=== PATIENT | female | born 1955 | race Caucasian/White ===

== ENCOUNTER → 2016-09-25 | Outpatient (CLI) | payer BC | END | disposition home or self-care (01) | LOC: LABWHC1 14:26 | PROVIDERS: ATTEND Obstetrics & Gynecology | DX: N83.9 Noninflammatory disorder of ovary, fallopian tube and broad ligament, unspecified (principal) | CPT/HCPCS: 36415; 86304 ==

== ENCOUNTER → 2016-11-27 | Outpatient (CLI) | payer BC ==
--- NOTE | 2016-11-27 09:39 | US ---
EXAMINATION TYPE: US pelvis complete transvag DATE OF EXAM: 11/27/2016 COMPARISON: NONE CLINICAL HISTORY: Prev Ovarian Cyst N83.20. dr polly showed rt ov cyst TECHNIQUE: Transvaginal (TV) and Transabdominal (TA) Date of LMP: 7 years ago EXAM MEASUREMENTS: Uterus: 9.1 x 2.1 x 3.4 cm Endometrial Stripe: 0.4 cm Right Ovary: 2.2 x 1.0 x 2.1 cm Left Ovary: 2.6 x 1.3 x 1.6 cm 1. Uterus: Anteverted heterogenous, small echogenic foci upper cervix 0.3 x 0.3 x 0.3 cm. This cou ld represent a small polyp although no feeding vessel is appreciated. 2. Endometrium: not clearly defined 3. Right Ovary: possible small follicle 0.3 cm 4. Left Ovary: not seen well portions seen wnl 5. Bilateral Adnexa: Obscured by overlying bowel gas 6. Posterior cul-de-sac: wnl IMPRESSION: 1. No evidence of ovarian cysts. 2. Small 3 mm echogenic focus near the junction of the lower uterine segment and superior cervix. Thi s could represent a small polyp and direct visualization is recommended as this may not be well delin eated on hysterosonography.
== END | disposition home or self-care (01) ==
LOC: RADUSWWP 08:24
PROVIDERS: ATTEND Obstetrics & Gynecology
DX: R93.8 Abnormal findings on diagnostic imaging of other specified body structures (principal)
CPT/HCPCS: 76830; 76856

== ENCOUNTER → 2018-01-05 | Outpatient (CLI) | payer BC ==
--- NOTE | 2018-01-05 09:12 | US ---
EXAMINATION TYPE: US pelvis complete transvag DATE OF EXAM: 01/05/2018 COMPARISON: 11/27/2016 CLINICAL HISTORY: N83.0 OVARIAN CYST,N84.0 ENDOMETRIAL POLYP. TECHNIQUE: Transvaginal (TV) and Transabdominal (TA) . Transabdominal sonographic images of the pel vis were acquired. Transvaginal sonographic images were medically necessary to better assess the fol lowing anatomy: endometrium and ovaries Date of LMP: post menopausal, no HRT EXAM MEASUREMENTS: Uterus: 7.8 x 3.6 x 3.7 cm Endometrial Stripe: 0.4 cm Right Ovary: not identified Left Ovary: not identified 1. Uterus: Anteverted heterogeneous echotexture 2. Endometrium: wnl 3. Right Ovary: not identified 4. Left Ovary: not identified 5. Bilateral Adnexa: wnl 6. Posterior cul-de-sac: no free fluid IMPRESSION: 1. Uterine myometrium is heterogeneous but stable in appearance which is a nonspecific finding. Previ ous seen noted small echogenic focus in the upper cervix is not seen on today's exam.
== END | disposition home or self-care (01) ==
LOC: RADUSWWP 08:20
PROVIDERS: ATTEND Obstetrics & Gynecology
DX: N83.01 Follicular cyst of right ovary (principal); N81.0 Urethrocele
CPT/HCPCS: 76830; 76856

== ENCOUNTER → 2019-01-31 | Outpatient (CLI) | payer OTHER ==
--- NOTE | 2019-02-02 11:15 | MM ---
Reason for exam: screening (asymptomatic). Last mammogram was performed 7 years and 9 months ago. History: Patient is postmenopausal. Physical Findings: A clinical breast exam by your physician is recommended on an annual basis and results should be correlated with mammographic findings. MG 3D Screening Mammo W/Cad Bilateral CC and MLO view(s) were taken. Prior study comparison: January 05, 2018, mammogram, performed at [facility]. May 15, 2016, mammogram, performed at [facility]. May 12, 2011, bilateral digital screening mammo w/CAD. May 10, 2010, bilateral digital screening mammogram. There are scattered fibroglandular densities. There is chronic nodularity in the left lower inner quadrant. ASSESSMENT: Benign, BI-RAD 2 RECOMMENDATION: Routine screening mammogram of both breasts in 1 year.
== END ==
LOC: RADMAMWWP 07:57
PROVIDERS: ATTEND Obstetrics & Gynecology
DX: Z12.31 Encounter for screening mammogram for malignant neoplasm of breast (principal)
CPT/HCPCS: 77063; 77067

== ENCOUNTER 2019-05-16 07:37 | Observation (INO) | payer OTHER ==
[2019-05-16] MEDS ORDERED: ASPIRIN 81 MG PO STA (07:57)
--- NOTE | 2019-05-16 07:58 | ED ---
Chest Pain HPI - General Chief Complaint: Chest Pain Stated Complaint: Nausea/Dizziness/ETHAN Time Seen by Provider: 05/16/19 07:42 Source: patient Mode of arrival: ambulatory Limitations: no limitations - History of Present Illness Initial Comments: Patient is 63-year-old female presenting to the emergency department with chief complaint of chest pain. Patient reports she is drinking coffee and developed the sudden onset of dizziness where the room was spinning around her. She also developed a sudden episode of sweating, nausea but no vomiting. She also reports some upper chest tightness without any radiation. Denies shortness of breath. Patient states yesterday she had some left shoulder discomfort that is gradually resolved. Patient denies a history of hypertension but suspected to have hyperlipidemia but has not been evaluated for quite some time. Patient is not a smoker. Denies family history of early cardiac . Patient denies back pain abdominal pain. - Related Data Home Medications Medication Instructions Recorded Confirmed No Known Home Medications 05/11/15 05/16/19 Allergies Allergy/AdvReac Type Severity Reaction Status Date / Time No Known Allergies Allergy Verified 05/16/19 09:42 Review of Systems ROS Statement: Those systems with pertinent positive or pertinent negative responses have been documented in the HPI. ROS Other: All systems not noted in ROS Statement are negative. EKG Findings - EKG Comments: EKG Findings:: Normal sinus rhythm, no ST changes, ventricular rate 73, ID interval 160, QRS advent 76, QTC 429. Past Medical History Past Medical History: Asthma, GERD/Reflux, Sleep Apnea/CPAP/BIPAP Additional Past Medical History / Comment(s): C-PAP MACHINE, STATES ABNORMAL PAP SMEAR. History of Any Multi-Drug Resistant Organisms: None Reported Additional Past Surgical History / Comment(s): D & C Past Anesthesia/Blood Transfusion Reactions: Motion Sickness, Postoperative Nausea & Vomiting (PONV) Additional Past Anesthesia/Blood Transfusion Reaction / Comment(s): STATES THROAT HURT POST-OP Past Psychological History: No Psychological Hx Reported Smoking Status: Former smoker Past Alcohol Use History: Occasional Past Drug Use History: None Reported - Past Family History Mother Family Medical History: Cancer Additional Family Medical History / Comment(s): MELANOMA Sister(s) Family Medical History: Cancer Additional Family Medical History / Comment(s): CERVICAL CANCER General Exam Limitations: no limitations General appearance: alert, in no apparent distress, obese Head exam: Present: atraumatic, normocephalic, normal inspection Eye exam: Present: normal appearance, PERRL, EOMI Pupils: Present: normal accommodation ENT exam: Present: normal exam Neck exam: Present: normal inspection, full ROM Respiratory exam: Present: normal lung sounds bilaterally Cardiovascular Exam: Present: regular rate, normal rhythm, normal heart sounds GI/Abdominal exam: Present: soft. Absent: distended, tenderness, guarding Extremities exam: Present: normal inspection, full ROM, normal capillary refill, other (+2 ulnar and radial pulses bilaterally.) Back exam: Present: normal inspection, full ROM Neurological exam: Present: alert, oriented X3 Psychiatric exam: Present: normal affect, normal mood Skin exam: Present: warm, dry, intact, normal color Course Vital Signs 05/16/19 05/16/19 07:39 08:57 Temperature 98.1 F Pulse Rate 73 66 Respiratory 18 Rate Blood Pressure 153/90 139/87 O2 Sat by Pulse 99 Oximetry Chest Pain MDM - Differential Diagnosis ACS, Pleurisy-Other - MDM Patient is 63-year-old male presenting to the emergency department with a chief complaint of chest pain. Patient has atypical chest pain with typical features. Patient has low risk factors but has not seen a primary care physician a few years. Patient has recently established care with a primary physician but no lab work was obtained there. Patient was given 325 mg of aspirin in the ED. EKG shows normal sinus rhythm with no ST changes and the EKG is similar to 05/11/15. Initial troponin is negative. Patient has no shortness of breath. Chest x-ray shows chronic pulmonary changes, cardiomegaly without pulmonary edema. Patient has no significant past medical history aside from sleep apnea. Patient will be admitted for serial troponins. Case discussed with Dr. Peña. Admitting physician is Cardiology consult. Disposition Clinical Impression: Chest discomfort, Chest pain at rest Disposition: ADMITTED IP TO THIS HOSP Condition: Stable Instructions (If sedation given, give patient instructions): Chest Pain (ED) Additional Instructions: Patient will be admitted Is patient prescribed a controlled substance at d/c from ED?: No Referrals: Tray Drake MD [Primary Care Provider] - 1-2 days Time of Disposition: 09:51
--- NOTE | 2019-05-16 08:37 | XR ---
EXAMINATION TYPE: XR chest 2V DATE OF EXAM: 05/16/2019 COMPARISON: Chest x-ray and CTA chest May 11, 2015 HISTORY: Chest pain. TECHNIQUE: Frontal and lateral views of the chest are obtained. FINDINGS: Overlying EKG leads. There is chronic parenchymal change without new suspicious focal air s pace opacity, pleural effusion, or pneumothorax seen. Lateral view shows fullness posterior costophre nancy angle corresponding to right basilar diaphragmatic hernia. The cardiac silhouette size is stable and enlarged. The osseous structures are intact. IMPRESSION: Chronic changes and cardiomegaly without acute pulmonary process.
[2019-05-16 08:52] LABS: Basophils # (A) 0.1 k/uL (0-0.2); Basophils % (A) 1 %; Eosinophils # (A) 0.2 k/uL (0-0.7); Eosinophils % (A) 3 %; HCT 45.1 % (34.0-46.0); HGB 14.6 gm/dL (11.4-16.0); Lymphocytes # (A) 1.9 k/uL (1.0-4.8); Lymphocytes % (A) 28 %; MCH 29.6 pg (25.0-35.0); MCHC 32.5 g/dL (31.0-37.0); MCV 91.2 fL (80.0-100.0); Mean Platelet Volume 8.2; Monocytes # (A) 0.3 k/uL (0-1.0); Monocytes % (A) 4 %; Neutrophils # (A) 4.1 k/uL (1.3-7.7); Neutrophils % (A) 60 %; Platelet Count 249 k/uL (150-450); RBC 4.95 m/uL (3.80-5.40); RDW 12.9 % (11.5-15.5); WBC 6.8 k/uL (3.8-10.6)
[2019-05-16 08:58] LABS: ALT 24 U/L (4-34); AST 24 U/L (14-36); African American GFR (CKD) >90 (>60 ml/min/1.73 sqM); Albumin 4.1 g/dL (3.5-5.0); Alkaline Phosphatase 101 U/L (38-126); Anion Gap 10 mmol/L; Blood Urea Nitrogen 25 mg/dL (7-17); Calcium 9.3 mg/dL (8.4-10.2); Carbon Dioxide 24 mmol/L (22-30); Chloride 106 mmol/L (98-107); Glucose 101 mg/dL (74-99); Non-African American GFR(CKD) 80 (>60 ml/min/1.73 sqM); Partial Thromboplastin Time 23.8 sec (22.0-30.0); Potassium 4.3 mmol/L (3.5-5.1); Prothrombin Time 10.1 sec (9.0-12.0); Sodium 140 mmol/L (137-145); Total Bilirubin 0.6 mg/dL (0.2-1.3); Total Protein 7.5 g/dL (6.3-8.2)
[2019-05-16] MEDS ORDERED: NITROGLYCERIN SL TABS 0.4 MG TAB SUBLINGUAL PRN (09:52)
[2019-05-16] MEDS ORDERED: SODIUM CHLORIDE 0.9% 500 ML 500 ML IV ONE (14:25)
--- NOTE | 2019-05-16 16:44 | P.CRDCN ---
History of Present Illness History of present illness: This is Priscila Morocho PA-C dictating a consult on this patient The patient was interviewed and examined by me as well as by Dr. Carmona Case discussed with Dr. Carmona and he agrees with the plan of care IMPRESSION / ASSESSMENT: Symptoms of dizziness likely secondary to combination of vertigo related to her recent cold and vasovagal presyncope Atypical chest discomfort, cardiac enzymes negative 1, EKG x [address] or T-wave abnormalities History of WILBERTO, on CPAP LDL 118, ten-year ASCVD risk score 3.9% PLAN: Check D-dimer, A1c, Follow-up on repeat cardiac enzymes Schedule for tilt table test Monitor telemetry for arrhythmias HPI Patient is a 63-year-old female with a past medical history significant for obstructive sleep apnea who presented with complaints of dizziness and chest discomfort. Patient states she was at home drinking her coffee, sitting down wh en she experienced a sudden onset of dizziness which she describes as "the room is spinning". It lasted for about 2 minutes and was relieved by closing her eyes. She also experienced some tightness across her chest briefly. Denies any associated palpitations. She then got up and started to get ready and felt lightheaded, nauseous, hot, and diaphoretic. No vomiting. No syncope. She had never had an experienced symptoms like this before. She does report that yesterday she had some left shoulder discomfort. She decided to come in for evaluation.Upon presentation her blood pressure was 153/90 and pulse was 70. EKG showed sinus mechanism with no acute ST or T-wave abnormalities. Chest x- ray showed no acute cardiopulmonary process. Cardiac enzymes negative 1.Patient seen and examined resting in bed. Her symptoms have resolved. Denies any chest pain or shortness of breath. No dizziness. Repeat EKG again demonstrates no acute ST or T-wave abnormalities. Denies history of hypertension, diabetes, dyslipidemia Admits to drinking one glass of wine a day She is a former smoker but quit several years back ROS: No fevers, chills or rigors, no cough, phlegm or expectoration, he did have a recent cold about 2 weeks ago that she is recovering from Positive for nausea, no vomiting or diarrhea, no hematuria, dysuria, no musculoskeletal complaints, no strokes or seizures, no skin lesions. EXAMINATION: Patient is afebrile, pulse 70, respirations 16, blood pressure 136/77, oxygen saturation 97% on room air Patient seen and examined resting comfortably in bed, in no acute distress Lungs clear to auscultation bilaterally, no wheezing rhonchi or crackles Heart is regular, normal S1-S2, no audible murmurs No elevated JVD No lower extremity edema Abdomen soft and nontender to palpation REVIEW OF LABS, ECG & MEDICAL DATA CBC 6.8, hemoglobin 14.6, platelets 249, potassium 4.3, BUN 25, creatinine 0.8 TSH within normal limits LDL 118 Past Medical History Past Medical History: Asthma, GERD/Reflux, Sleep Apnea/CPAP/BIPAP Additional Past Medical History / Comment(s): WILBERTO with Cpap use, bronchitis. History of Any Multi-Drug Resistant Organisms: None Reported Additional Past Surgical History / Comment(s): D & C, colonoscopy with benign polypectomy Past Anesthesia/Blood Transfusion Reactions: Motion Sickness Additional Past Anesthesia/Blood Transfusion Reaction / Comment(s): STATES THROAT HURT POST-OP Past Psychological History: Anxiety Additional Psychological History / Comment(s): Pt resides with her spouse. She is self employed. Smoking Status: Former smoker Past Alcohol Use History: Occasional Additional Past Alcohol Use History / Comment(s): Pt started smoking in 1973 and quit in 1985. She drinks 1/4 cup of wine nightly. Past Drug Use History: None Reported - Past Family History Mother Family Medical History: Cancer Additional Family Medical History / Comment(s): Melanoma. Mother is . Sister(s) Family Medical History: Cancer Additional Family Medical History / Comment(s): CERVICAL CANCER Father Additional Family Medical History / Comment(s): Father is 95 yrs old with a pacemaker. Medications and Allergies Home Medications Medication Instructions Recorded Confirmed Type No Known Home Medications 05/11/15 05/16/19 History Allergies Allergy/AdvReac Type Severity Reaction Status Date / Time shellfish derived [Shellfish] Allergy Unknown Verified 05/16/19 11:20 Physical Exam Vitals: Vital Signs Temp Pulse Pulse Pulse Resp BP BP 05/16/19 15:28 98 F 70 16 136/77 05/16/19 11:00 97.9 F 65 18 125/70 05/16/19 10:00 66 18 136/83 05/16/19 08:57 66 139/87 05/16/19 07:39 98.1 F 73 18 153/90 Pulse Ox 05/16/19 15:28 97 05/16/19 11:00 97 05/16/19 10:00 97 05/16/19 08:57 05/16/19 07:39 99 Intake and Output 05/16/19 05/16/19 05/16/19 06:59 14:59 22:59 Intake Total 290 Balance 290 Intake: IV 50 Oral 240 Other: Weight 122.47 kg Results 05/16/19 08:00 05/16/19 08:00 Cardiac Enzymes 05/16/19 05/16/19 05/16/19 Range/Units 08:00 08:00 12:48 AST 24 (14-36) U/L Troponin I <0.012 <0.012 (0.000-0.034) ng/mL Coagulation 05/16/19 Range/Units 08:00 PT 10.1 (9.0-12.0) sec APTT 23.8 (22.0-30.0) sec Lipids 05/16/19 Range/Units 08:00 Triglycerides 85 (<150) mg/dL Cholesterol 192 (<200) mg/dL HDL Cholesterol 57 (40-60) mg/dL CBC 05/16/19 Range/Units 08:00 WBC 6.8 (3.8-10.6) k/uL RBC 4.95 (3.80-5.40) m/uL Hgb 14.6 (11.4-16.0) gm/dL Hct 45.1 (34.0-46.0) % Plt Count 249 (150-450) k/uL Comprehensive Metabolic Panel 05/16/19 Range/Units 08:00 Sodium 140 (137-145) mmol/L Potassium 4.3 (3.5-5.1) mmol/L Chloride 106 (98-107) mmol/L Carbon Dioxide 24 (22-30) mmol/L BUN 25 H (7-17) mg/dL Creatinine 0.80 (0.52-1.04) mg/dL Glucose 101 H (74-99) mg/dL Calcium 9.3 (8.4-10.2) mg/dL AST 24 (14-36) U/L ALT 24 (4-34) U/L Alkaline Phosphatase 101 (38-126) U/L Total Protein 7.5 (6.3-8.2) g/dL Albumin 4.1 (3.5-5.0) g/dL Current Medications Generic Name Dose Route Start Last Admin Trade Name Freq PRN Reason Stop Dose Admin Aspirin 81 mg 05/17/19 09:00 Aspirin PO DAILY GERARDO Nitroglycerin 0.4 mg 05/16/19 09:52 Nitrostat SUBLINGUAL Q5M PRN Chest Pain Intake and Output 05/16/19 05/16/19 05/16/19 06:59 14:59 22:59 Intake Total 290 Balance 290 Intake: IV 50 Oral 240 Other: Weight 122.47 kg Patient Weight 05/17/19 06:59 Weight 122.47 kg 05/16/19 08:00 05/16/19 08:00
[2019-05-16] MEDS ORDERED: MECLIZINE 12.5 MG TAB PO PRN (17:11)
--- NOTE | 2019-05-16 18:38 | HP ---
HISTORY AND PHYSICAL This patient is a 63-year-old white female who came into the hospital with some dizziness while sitting down and drinking coffee. The room was spinning. Her dizziness is most likely related to some vertigo. She had a recent possibly vasovagal presyncope. She really had no chest pain. She has a history of sleep apnea, on CPAP. LDL is 118. She has never had feelings like this before where she got dizzy, although she has been on a recent fast where she had not eaten since 5 p.m. the prior night. She had some left shoulder discomfort. EKG shows no ST-T changes. Chest x-ray is negative. Cardiac enzymes are negative so far. We are going to give her a trial of Antivert if it happens again. No dizziness currently. PAST MEDICAL HISTORY: 1. Obstructive sleep apnea. 2. Obesity. 3. Former smoker. 4. Drinks one glass of wine a day. REVIEW OF SYSTEMS: Fourteen-point review of systems negative except for mentioned in HPI. PHYSICAL EXAMINATION: Blood pressure 130s over 70s, oxygen 97, respiratory rate 12-14. LUNGS: Clear. HEART: S1, S2. ABDOMEN: Soft. LABS: BUN 25, creatinine 0.8. CBC shows hemoglobin 14.6, white count 6.8. TSH is normal. ASSESSMENT: 1. Atypical dizziness. Suspect vertigo. 2. Atypical left shoulder pain. 3. History of sleep apnea. 4. Gastroesophageal reflux disease. 5. Asthma. 6. Recent bronchitis. 7. Anxiety. 8. Ex-smoker. Rule out myocardial infarction. Antivert p.r.n. for dizziness. Check her for risk factors for heart disease. Please see further orders. MMODL / IJN: [id number] /
--- NOTE | 2019-05-16 19:17 | P.PCN ---
Preoperative Diagnosis: Diagnosis: Presyncope Twelve-lead EKG shows sinus mechanism, normal AK, narrow QRS, normal ST segments, normal QT interval, no delta Waves, No Epsilon Waves Baseline heart rate was 75 bpm, Baseline blood pressure was 149/67 Patient was tilted upright at a 70 angle as per protocol. There were no significant changes in her heart rate or blood pressure throughout the procedure. Heart rate remained in the 80s, blood pressure remained in the 130s to 150s systolic over 60s to 70s diastolic. The patient was asymptomatic throughout the procedure. At the end of the procedure she was laid supine. Impression Normal twelve-lead EKG Normal heart rate and blood pressure response to upright tilting. No evidence for neurocardiogenic syncope or dysautonomia
[2019-05-16 23:25] LABS: Hemoglobin A1C 5.3 % (4.0-6.0)
[2019-05-17] MEDS ORDERED: ASPIRIN 325 MG TAB PO SCH (09:00)
[2019-05-17] MEDS ORDERED: ASPIRIN 81 MG PO SCH (09:00)
[2019-05-17 11:42] VITALS: BP 122/73; PULSE 68; RESP 20; TEMP 98.3
--- NOTE | 2019-05-17 13:11 | P.PN ---
Subjective This is Priscila Morocho PA-C dictating a progress note on this patient The patient was interviewed and examined by me as well as by Dr. Carmona Case discussed with Dr. Carmona and he agrees with the plan of care IMPRESSION / ASSESSMENT: Symptoms of dizziness likely secondary to combination of vertigo and vasovagal presyncope, tilt table test was negative, no arrhythmias on telemetry Atypical chest discomfort, normal EKG, cardiac enzymes negative 2 History of WILBERTO on CPAP She has had some elevated blood pressure readings on admission but overall trend is within normal limits Dyslipidemia, LDL 118, ASCVD risk score 3.9% PLAN: From a cardiology standpoint, she is clear for discharge with outpatient follow- up Follow-up in the office this Thursday, will obtain echocardiogram and stress echocardiogram outpatient Continue to monitor blood pressure Encouraged patient to continue exercising and heart healthy diet, gradual weight reduction HPI/interval history Patient is a 63-year-old female with history of WILBERTO who presented with compl aints of dizziness and chest discomfort. EKG did not show any acute changes. Troponins were negative. TSH within normal limits. She underwent table test which did not show any evidence for neurocardiogenic syncope. She has had no arrhythmias on telemetry. Patient seen and examined resting comfortably in bed. No further episodes of dizziness. No chest discomfort. She does get short of breath with exertion which she attributes to her lack of regular physical activity denies any acute shortness of breath. EXAMINATION Patient is afebrile, pulse in the 60s, respirations 20, blood pressure 122/73, oxygen saturation 96% on room air Patient seen and examined resting comfortably in bed, in no acute distress Heart is regular, normal S1-S2, no murmurs Lungs clear to auscultation bilaterally Extremities warm, no edema REVIEW OF LABS, ECG Hemoglobin A1c 5.3 D-dimer 0.33 BUN 25, creatinine 0.8, potassium 4.3 Objective - Vital Signs Vital signs: Vital Signs Temp 98.3 F 05/17/19 11:42 Pulse 68 05/17/19 11:42 Resp 20 05/17/19 11:42 BP 122/73 05/17/19 11:42 Pulse Ox 96 05/17/19 11:42 Intake & Output 05/16/19 05/17/19 05/17/19 18:59 06:59 18:59 Intake Total 530 180 Output Total 200 Balance 530 -200 180 Weight 122.47 kg 124.3 kg Intake: IV 50 Oral 480 180 Output: Urine 200 Other: Voiding Method Toilet # Voids 4 1 1 - Labs CBC & Chem 7: 05/16/19 08:00 05/16/19 08:00
--- NOTE | 2019-05-29 10:44 | DS ---
DISCHARGE SUMMARY ADMIT DATE: 05/16/2019. DISCHARGE DATE: 05/17/2019. MEDICATIONS: Antivert 12.5 q.8h p.r.n. CONDITION: Stable. PROGNOSIS: Guarded. Ambulate as tolerated. HISTORY: White female was admitted with dizziness, atypical chest pain. Cardiology saw her and cleared her for surgery. She had negative tilt table test in the hospital. Cleared by Cardiology. Treated with Antivert for vertigo, which improved her. She will follow up as an outpatient. CONDITION: Stable. PROGNOSIS: Guarded. MMODL / IJN: [id number] /
== END 2019-05-17 14:13 | disposition home or self-care (01) ==
LOC: EC 07:37 → 3SCARD 09:52
PROVIDERS: ADMIT Family Medicine; ATTEND Family Medicine
DX: R07.89 Other chest pain (principal); R55 Syncope and collapse; R42 Dizziness and giddiness; M25.512 Pain in left shoulder; E78.5 Hyperlipidemia, unspecified; J45.909 Unspecified asthma, uncomplicated; K21.9 Gastro-esophageal reflux disease without esophagitis; F41.9 Anxiety disorder, unspecified; G47.33 Obstructive sleep apnea (adult) (pediatric); I51.7 Cardiomegaly; Z87.891 Personal history of nicotine dependence; Z99.89 Dependence on other enabling machines and devices; Z82.49 Family history of ischemic heart disease and other diseases of the circulatory system; Z80.8 Family history of malignant neoplasm of other organs or systems; Z80.49 Family history of malignant neoplasm of other genital organs
CPT/HCPCS: 93005 ×3; 99285; 36415; 93660; 85379; 80061; 80053; 84443; 83735; 84436; 84484; 85025; 85610; 85730; 83036; 71046; G0378 ×2

== ENCOUNTER 2019-10-23 07:05 | Emergency (ER) | payer OTHER ==
[2019-10-23 07:17] VITALS: TEMP 98
[2019-10-23] MEDS ORDERED: SODIUM CHLORIDE 0.9% 1,000 ML IV STA (07:28)
[2019-10-23] MEDS ORDERED: ONDANSETRON 4 MG/2 ML VIAL IVP STA (07:28)
--- NOTE | 2019-10-23 07:31 | ED ---
General Adult HPI - General Chief complaint: Abdominal Pain Stated complaint: vomiting Time Seen by Provider: 10/23/19 07:17 Source: patient Mode of arrival: ambulatory Limitations: no limitations - History of Present Illness Initial comments: Dictation was produced using Rundown dictation software. please excuse any grammatical, word or spelling errors. This patient was cared for during a federal and state declared state of emergency secondary to Covid 19 Chief Complaint: 64-year-old female past medical history of asthma and sleep apnea presents with epigastric abdominal pain. History of Present Illness: 64-year-old female since 11 PM last night patient has been having epigastric abdominal pain, nausea and vomiting. Patient reports that her emesis is nonbilious nonbloody patient states that her emesis resembles food. She's concerned she is food poisoning. She had a salad for dinner last night. Shortly after she began experiencing abdominal burning, nausea and vomiting. Patient describes the pain as burning sensation to the mid epigastric area. Does not radiate. She states that it's a burning sensation. She denies the pain being sharp or dull. She states that the pain is not very severe. Since the onset of her symptoms she did attempt to drink fluids. She was able to tolerate that. She denies any worsening symptoms with oral intake. She denies any diarrhea. No constitutional symptoms. The ROS documented in this emergency department record has been reviewed and confirmed by me. Those systems with pertinent positive or negative responses have been documented in the HPI. All other systems are other negative and/or noncontributory. PHYSICAL EXAM: General Impression: Alert and oriented x3, not in acute distress HEENT: Normocephalic atraumatic, extra-ocular movements intact, pupils equal and reactive to light bilaterally, mucous membranes moist. Cardiovascular: Heart regular rate and rhythm Chest: Able to complete full sentences, no retractions, no tachypnea Abdomen: abdomen soft, slight tenderness to palpation of the epigastric area, non-distended, no organomegaly, negative Kelly sign, no pain in McBurney's point, negative left lower quadrant tenderness to palpation, no pulsatile ab dominal mass Musculoskeletal: Pulses present and equal in all extremities, no peripheral edema Motor: no focal deficits noted Neurological: CN II-XII grossly intact, no focal motor or sensory deficits noted Skin: Intact with no visualized rashes Psych: Normal affect and mood ED course: 64-year-old female presents with nausea vomiting abdominal pain. Vital signs upon arrival are within acceptable limits. Physical examination appears benign. Her abdominal exam is benign. She does not have any physical exam findings to suggest surgical abdomen. Laboratory evaluation obtained. Patient has mild leukocytosis of 11.7 likely secondary to stress. Metabolic panel is unremarkable. Abdominal x-ray shows no acute processes. Patient history with intravenous fluids, Zofran and Bentyl and GI cocktail. Patient states that her symptoms are slightly improved however not entirely gone. Results were discussed with patient. It was offered to her to have a CT to rule out any sort of surgical abdomen. Patient decided that she doesn't want to get a CT performed today. Patient requested to be discharged. She is told to follow-up with her primary care physician. Temporarily discussed. Patient was offered antiemetics however she refused. While in the emergency department her called and told her that he was having similar symptoms after being at the same picnic. There is concern of food poisoning. Patient told to monitor her symptoms closely at home and to return to the emerg ency department if they do not get better. Patient agreeable with plan. Patient will be discharged. EKG interpretation: Ventricular rate 64, normal sinus rhythm, NY interval 164, QRS 76, QTC 427. No NY prolongation, T-wave inversion seen in lead 3 and aVF that appear to be present on EKG from 2019. Overall, this EKG is unremarkable - Related Data Previous Rx's Medication Instructions Recorded Meclizine [Antivert] 12.5 mg PO TID PRN #30 tablet 05/17/19 Allergies Allergy/AdvReac Type Severity Reaction Status Date / Time shellfish derived [Shellfish] Allergy Unknown Verified 10/23/19 07:16 Review of Systems ROS Statement: Those systems with pertinent positive or pertinent negative responses have been documented in the HPI. ROS Other: All systems not noted in ROS Statement are negative. Past Medical History Past Medical History: Asthma, GERD/Reflux, Sleep Apnea/CPAP/BIPAP Additional Past Medical History / Comment(s): WILBERTO with Cpap use, bronchitis. History of Any Multi-Drug Resistant Organisms: None Reported Additional Past Surgical History / Comment(s): D & C, colonoscopy with benign polypectomy Past Anesthesia/Blood Transfusion Reactions: Motion Sickness Additional Past Anesthesia/Blood Transfusion Reaction / Comment(s): STATES THROAT HURT POST-OP Past Psychological History: Anxiety Smoking Status: Former smoker Past Alcohol Use History: Occasional Past Drug Use History: None Reported - Past Family History Mother Family Medical History: Cancer Additional Family Medical History / Comment(s): Melanoma. Mother is . Sister(s) Family Medical History: Cancer Additional Family Medical History / Comment(s): CERVICAL CANCER Father Additional Family Medical History / Comment(s): Father is 95 yrs old with a pacemaker. General Exam Limitations: no limitations Course Vital Signs 10/23/19 10/23/19 10/23/19 07:12 08:21 08:22 Temperature 98.0 F Pulse Rate 77 67 72 Respiratory 16 18 16 Rate Blood Pressure 166/95 147/74 O2 Sat by Pulse 97 98 97 Oximetry 10/23/19 08:30 Temperature Pulse Rate 70 Respiratory 16 Rate Blood Pressure 147/74 O2 Sat by Pulse 98 Oximetry Medical Decision Making - Lab Data Result diagrams: 10/23/19 07:32 10/23/19 07:52 Lab Results 10/23/19 10/23/19 10/23/19 Range/Units 07:32 07:52 07:52 WBC 11.7 H (3.8-10.6) k/uL RBC 4.59 (3.80-5.40) m/uL Hgb 14.0 (11.4-16.0) gm/dL Hct 42.2 (34.0-46.0) % MCV 92.0 (80.0-100.0) fL MCH 30.5 (25.0-35.0) pg MCHC 33.1 (31.0-37.0) g/dL RDW 13.1 (11.5-15.5) % Plt Count 238 (150-450) k/uL Neutrophils % 87 % Lymphocytes % 9 % Monocytes % 2 % Eosinophils % 1 % Basophils % 0 % Neutrophils # 10.2 H (1.3-7.7) k/uL Lymphocytes # 1.0 (1.0-4.8) k/uL Monocytes # 0.3 (0-1.0) k/uL Eosinophils # 0.1 (0-0.7) k/uL Basophils # 0.0 (0-0.2) k/uL Sodium 134 L (137-145) mmol/L Potassium 4.3 (3.5-5.1) mmol/L Chloride 101 (98-107) mmol/L Carbon Dioxide 25 (22-30) mmol/L Anion Gap 8 mmol/L BUN 21 H (7-17) mg/dL Creatinine 0.67 (0.52-1.04) mg/dL Est GFR (CKD-EPI)AfAm >90 (>60 ml/min/1.73 sqM) Est GFR (CKD-EPI)NonAf >90 (>60 ml/min/1.73 sqM) Glucose 147 H (74-99) mg/dL Plasma Lactic Acid Regan 1.2 (0.7-2.0) mmol/L Calcium 9.5 (8.4-10.2) mg/dL Total Bilirubin 0.5 (0.2-1.3) mg/dL Conjugated Bilirubin 0.0 (0.0-0.3) mg/dL Unconjugated Bilirubin 0.5 (0.0-1.1) mg/dL Delta Bilirubin 0.0 (0.0-0.2) mg/dL AST 21 (14-36) U/L ALT 19 (4-34) U/L Alkaline Phosphatase 108 (38-126) U/L Troponin I (0.000-0.034) ng/mL Total Protein 7.5 (6.3-8.2) g/dL Albumin 4.2 (3.5-5.0) g/dL Lipase 63 (23-300) U/L 10/23/19 Range/Units 07:52 WBC (3.8-10.6) k/uL RBC (3.80-5.40) m/uL Hgb (11.4-16.0) gm/dL Hct (34.0-46.0) % MCV (80.0-100.0) fL MCH (25.0-35.0) pg MCHC (31.0-37.0) g/dL RDW (11.5-15.5) % Plt Count (150-450) k/uL Neutrophils % % Lymphocytes % % Monocytes % % Eosinophils % % Basophils % % Neutrophils # (1.3-7.7) k/uL Lymphocytes # (1.0-4.8) k/uL Monocytes # (0-1.0) k/uL Eosinophils # (0-0.7) k/uL Basophils # (0-0.2) k/uL Sodium (137-145) mmol/L Potassium (3.5-5.1) mmol/L Chloride (98-107) mmol/L Carbon Dioxide (22-30) mmol/L Anion Gap mmol/L BUN (7-17) mg/dL Creatinine (0.52-1.04) mg/dL Est GFR (CKD-EPI)AfAm (>60 ml/min/1.73 sqM) Est GFR (CKD-EPI)NonAf (>60 ml/min/1.73 sqM) Glucose (74-99) mg/dL Plasma Lactic Acid Regan (0.7-2.0) mmol/L Calcium (8.4-10.2) mg/dL Total Bilirubin (0.2-1.3) mg/dL Conjugated Bilirubin (0.0-0.3) mg/dL Unconjugated Bilirubin (0.0-1.1) mg/dL Delta Bilirubin (0.0-0.2) mg/dL AST (14-36) U/L ALT (4-34) U/L Alkaline Phosphatase (38-126) U/L Troponin I <0.012 (0.000-0.034) ng/mL Total Protein (6.3-8.2) g/dL Albumin (3.5-5.0) g/dL Lipase (23-300) U/L Disposition Clinical Impression: Abdominal pain Disposition: HOME SELF-CARE Condition: Fair Instructions (If sedation given, give patient instructions): Abdominal Pain (ED) Is patient prescribed a controlled substance at d/c from ED?: No Referrals: Tray Drake MD [Primary Care Provider] - 1-2 days Time of Disposition: 09:41
[2019-10-23 08:08] LABS: Basophils % (A) 0 %; Eosinophils # (A) 0.1 k/uL (0-0.7); Eosinophils % (A) 1 %; HCT 42.2 % (34.0-46.0); Lymphocytes % (A) 9 %; MCH 30.5 pg (25.0-35.0); MCHC 33.1 g/dL (31.0-37.0); Mean Platelet Volume 8.3; Monocytes # (A) 0.3 k/uL (0-1.0); Monocytes % (A) 2 %; Neutrophils # (A) 10.2 k/uL (1.3-7.7); Neutrophils % (A) 87 %; Platelet Count 238 k/uL (150-450); RBC 4.59 m/uL (3.80-5.40); RDW 13.1 % (11.5-15.5); WBC 11.7 k/uL (3.8-10.6)
[2019-10-23] MEDS ORDERED: DICYCLOMINE 10 MG CAP PO STA (08:16)
--- NOTE | 2019-10-23 08:19 | XR ---
EXAMINATION TYPE: XR abdomen 1V , 2 VIEWS DATE OF EXAM ORDERED: 10/23/2019 HISTORY: abdominal pain. COMPARISON: None. FINDINGS: The lung bases are clear. Within the abdomen, the abdominal gas pattern is normal. There is no evidence of obstruction or free air. No unusual calcifications are seen. IMPRESSION: NO ACUTE INTRA-ABDOMINAL ABNORMALITY.
[2019-10-23 08:37] LABS: ALT 19 U/L (4-34); AST 21 U/L (14-36); African American GFR (CKD) >90 (>60 ml/min/1.73 sqM); Albumin 4.2 g/dL (3.5-5.0); Alkaline Phosphatase 108 U/L (38-126); Anion Gap 8 mmol/L; Bilirubin,Unconjugated 0.5 mg/dL (0.0-1.1); Blood Urea Nitrogen 21 mg/dL (7-17); Calcium 9.5 mg/dL (8.4-10.2); Carbon Dioxide 25 mmol/L (22-30); Chloride 101 mmol/L (98-107); Glucose 147 mg/dL (74-99); Non-African American GFR(CKD) >90 (>60 ml/min/1.73 sqM); Potassium 4.3 mmol/L (3.5-5.1); Sodium 134 mmol/L (137-145); Total Bilirubin 0.5 mg/dL (0.2-1.3); Total Protein 7.5 g/dL (6.3-8.2)
[2019-10-23] MEDS ORDERED: MAG HYDROX/AL HYDROX/SIMETH 30 ML, HYOSCYAMINE ELIXIR 10 ML, LIDOCAINE VISCOUS 2% 10 ML PO STA ×3 (08:47)
[2019-10-23 09:45] VITALS: BP 145/70; PULSE 68; RESP 18
== END 2019-10-23 09:44 | disposition home or self-care (01) ==
LOC: EC 07:05
DX: R10.13 Epigastric pain (principal); R11.2 Nausea with vomiting, unspecified; D72.829 Elevated white blood cell count, unspecified; G47.33 Obstructive sleep apnea (adult) (pediatric); Z91.013 Allergy to seafood; Z87.891 Personal history of nicotine dependence; Z99.89 Dependence on other enabling machines and devices
CPT/HCPCS: 36415; 93005; 80053; 82248; 83605; 83690; 84484; 85025; 74018; 96374; 96361; 99284; J2405

== ENCOUNTER → 2021-01-28 | Outpatient (CLI) | payer BC | END | disposition home or self-care (01) | LOC: LABPAT 13:21 | PROVIDERS: ATTEND Obstetrics & Gynecology | DX: Z01.818 Encounter for other preprocedural examination (principal) | CPT/HCPCS: 93005 ==

== ENCOUNTER → 2021-01-28 | Outpatient (CLI) | payer BC, OTHER ==
--- NOTE | 2021-01-30 08:51 | MM ---
Reason for exam: screening (asymptomatic). Last mammogram was performed 2 years ago. History: Patient is postmenopausal. Physical Findings: A clinical breast exam by your physician is recommended on an annual basis and results should be correlated with mammographic findings. MG 3D Screening Mammo W/Cad Bilateral CC and MLO view(s) were taken. Prior study comparison: January 31, 2019, bilateral MG 3d screening mammo w/cad. January 05, 2018, mammogram, performed at [facility]. There are scattered fibroglandular densities. No significant changes when compared with prior studies. ASSESSMENT: Benign, BI-RAD 2 RECOMMENDATION: Routine screening mammogram of both breasts in 1 year.
== END | disposition home or self-care (01) ==
LOC: RADMAMWWP 13:16
PROVIDERS: ATTEND Obstetrics & Gynecology
DX: Z12.31 Encounter for screening mammogram for malignant neoplasm of breast (principal); Z78.0 Asymptomatic menopausal state
CPT/HCPCS: 77063; 77067

== ENCOUNTER 2021-02-07 08:39 | Day surgery (SDC) | payer BC, OTHER ==
[2021-02-06 08:48] VITALS: BMI 42.5
[~2021-02-07 08:39] MED LIST: DEXAMETHASONE SOD PHOSPHATE 4 MG/ML 1 ML VIAL IV ONE; HYDROmorphone 0.5 MG/0.5 ML SYRINGE IVP PRN; ONDANSETRON 4 MG/2 ML VIAL IVP ONE; Pre Op ABX Message 1 EACH MISC MISCELLANE ONE
[2021-02-07 08:56] VITALS: TEMP 96.9
[2021-02-07] MEDS ORDERED: LIDOCAINE 1% (10MG/ML) FOR IV START INTRADERMA ONE (09:12)
[2021-02-07] MEDS: LACTATED RINGERS 1,000 ML IV SCH ×2 (09:12→11:15)
[2021-02-07] MEDS ORDERED: fentaNYL (PF) 50 MCG/ML 2 ML AMP ONE (11:09)
[2021-02-07] MEDS ORDERED: SUCCINYLCHOLINE CHLORIDE VIAL 200 MG/10 ML VIAL IV ONE (11:09)
[2021-02-07] MEDS ORDERED: LIDOCAINE 1% INJ 10MG/ML (20 ML MDV) ONE (11:09)
[2021-02-07] MEDS ORDERED: MIDAZOLAM 2 MG/2 ML VIAL ONE (11:09)
[2021-02-07] MEDS ORDERED: PROPOFOL 10 MG/ML 20 ML VIAL IV ONE (11:09)
--- NOTE | 2021-02-07 11:40 | HP ---
HISTORY AND PHYSICAL PRINCIPAL DIAGNOSIS: Postmenopausal bleeding. HISTORY OF PRESENT ILLNESS: This 65-year-old female in November noticed that she had some pink spotting and a scant amount of bleeding. She did not have further bleeding after that, but an ultrasound was done showing a 0.9 cm lining. It had previously been 0.4 in 2018. She is therefore scheduled for a D and C with hysteroscopy. Risks/benefits/alternatives of this procedure were reviewed with the patient in detail, and all questions were answered for her prior to proceeding to the operating room. PAST MEDICAL HISTORY: Significant for increased cholesterol. PAST SURGICAL HISTORY: Prior D and C. PHYSICAL EXAMINATION: This is an obese female whose HEENT is unremarkable. HEART: Regular. LUNGS: Clear. Extremities are without pain. Abdomen is otherwise soft and pelvic exam is otherwise unremarkable. ASSESSMENT: Postmenopausal bleeding. PLAN: D and C with hysteroscopy. Also likely will do Pap smear at the same time. MMODL / IJN: [id number] /
--- NOTE | 2021-02-07 12:11 | P.OP ---
Date of Procedure: 02/07/21 Preoperative Diagnosis: Postmenopausal bleeding Postoperative Diagnosis: Same Procedure(s) Performed: Exam under anesthesia with Pap smear. D&C aborted Anesthesia: EULALIO Surgeon: Medhat Nunez Estimated Blood Loss (ml): 5 Pathology: other (Pap smear) Condition: stable Disposition: same day Operative Findings: Cervix was stenotic and uterus would not come down into the vagina with the cervix being redundantly flat against the posterior vaginal wall on the posterior side Description of Procedure: A she was taken to the operating suite where a general anesthetic was found be adequate. She was prepped and draped in normal sterile fashion and placed in dorsal lithotomy position. Initially a weighted speculum inserted in the vagina and the anterior lip of cervix identified and grasped with an Allis clamp. Multiple attempts at passing the dilators through the cervix were made but it was stenotic. Lacrimal dilators were called for and attempted with the only entry point being very lateral on the cervix. I was concerned at this point with further dilation that if I was actually heading into the cervical canal were into the muscle layers which is what it felt more like and if I was to perforate through this area with it being laterally uterus I can get into the vascularity and cause significant blood loss and would be very difficult to control the bleeding should that happen. After approximately 20 minutes of attempting various techniques to try and cannulate the cervix again with lacrimal dilators, regular dilators, the uterine sound, and a hemostat the decision to abort the procedure was made. She was then taken to the recovery room in stable condition with no further bleeding noted and Pap smear was sent to pathology. All instruments had been removed and counts were correct 2. Plan - Discharge Summary Discharge Rx Participant: No New Discharge Prescriptions: New Ibuprofen [Motrin] 600 mg PO Q6HR PRN #30 tab PRN Reason: Pain No Action Pravastatin Sodium [Pravachol] 10 mg PO HS Discharge Medication List Pravastatin Sodium [Pravachol] 10 mg PO HS 02/06/21 [History] Ibuprofen [Motrin] 600 mg PO Q6HR PRN #30 tab 02/07/21 [Rx] Follow up Appointment(s)/Referral(s): Medhat Nunez DO [Doctor of Osteopathic Medicine] - 1 Week Activity/Diet/Wound Care/Special Instructions: Pelvic rest. If any high temperatures, heavy bleeding, or severe pain call my office Discharge Disposition: HOME SELF-CARE
[2021-02-07 13:11] VITALS: BP 129/70; PULSE 68; RESP 16
== END 2021-02-07 13:29 | disposition home or self-care (01) ==
LOC: OR 08:39
PROVIDERS: ATTEND Obstetrics & Gynecology
DX: N95.0 Postmenopausal bleeding (principal); Z53.8 Procedure and treatment not carried out for other reasons; Z98.890 Other specified postprocedural states; E66.9 Obesity, unspecified; Z68.41 Body mass index [BMI] 40.0-44.9, adult; N88.2 Stricture and stenosis of cervix uteri; Z87.891 Personal history of nicotine dependence; E78.00 Pure hypercholesterolemia, unspecified; G47.33 Obstructive sleep apnea (adult) (pediatric); F41.9 Anxiety disorder, unspecified; J45.909 Unspecified asthma, uncomplicated; Z80.8 Family history of malignant neoplasm of other organs or systems; Z80.49 Family history of malignant neoplasm of other genital organs; Z79.899 Other long term (current) drug therapy; Z91.013 Allergy to seafood
CPT/HCPCS: 58558; J2250; J0330; J1100; J2405; J2001; J3010; J2704

== ENCOUNTER → 2021-04-22 | Outpatient (CLI) | payer BC ==
--- NOTE | 2021-04-22 09:24 | US ---
EXAMINATION TYPE: US pelvis complete transvag DATE OF EXAM: 04/22/2021 COMPARISON: 2018- Outside study per patient 01/2021 CLINICAL HISTORY: Post menopausal bleeding N95.0. TECHNIQUE: Transvaginal (TV) and Transabdominal (TA) . Transabdominal sonographic images of the pel vis were acquired. Transvaginal sonographic images were medically necessary to better assess the fol lowing anatomy: Endometrium Date of LMP: Post an EXAM MEASUREMENTS: Uterus: 7.3x4.2x3.1 cm Endometrial Stripe: 1.0 cm Right Ovary: 1.6x1.4x.1.1 cm Left Ovary: Not seen 1. Uterus: Anteverted wnl 2. Endometrium: Thickened, hetrogenous 3. Right Ovary: Echogenic region measuring 0.4x0.6x0.4cm 4. Left Ovary: Obscured by overlying bowel gas 5. Bilateral Adnexa: Obscured by overlying bowel gas 6. Posterior cul-de-sac: wnl IMPRESSION: 1. Thickening and heterogeneity of the endometrium. 2. Small right ovarian hemorrhagic cyst
== END | disposition home or self-care (01) ==
LOC: RADUSWWP 08:30
PROVIDERS: ATTEND Obstetrics & Gynecology
DX: N95.0 Postmenopausal bleeding (principal); N83.291 Other ovarian cyst, right side; R93.89 Abnormal findings on diagnostic imaging of other specified body structures
CPT/HCPCS: 76830; 76856

== ENCOUNTER → 2022-02-25 | Outpatient (CLI) | payer BC ==
--- NOTE | 2022-02-25 10:54 | MM ---
Reason for Exam: Screening (asymptomatic). Last mammogram was performed 1 year(s) and 1 month(s) ago. Patient History: Menarche at age 16. First Full-Term at age 28. Left ovary removed at age 66. Right ovary removed at age 66. Hysterectomy at age 66. Postmenopausal. Patient has history of breast feeding. Risk Values: Meera 5 year model risk: 1.6%. NCI Lifetime model risk: 6.6%. Prior Study Comparison: 12/08/2007 Bilateral Diagnostic Mammogram, [facility]. 12/15/2008 Bilateral Screening Mammogram, [facility]. 05/10/2010 Bilateral Screening Mammogram, [facility]. 05/12/2011 Bilateral Screening Mammogram, [facility]. 05/15/2016 Screening Mammogram, [facility]. 01/05/2018 Screening Mammogram, [facility]. 01/31/2019 Bilateral Screening Mammogram, [facility]. 01/28/2021 Bilateral Screening Mammogram, [facility]. Tissue Density: There are scattered fibroglandular densities. Findings: Analyzed By CAD. Benign-appearing left axillary lymph nodes are redemonstrated. There are scattered benign-appearing tiny round calcifications throughout the bilateral breasts noted. There is no suspicious new group of microcalcifications or new suspicious mass in either breast. Overall Assessment: Benign, BI-RAD 2 Management: Screening Mammogram of both breasts in 1 year. A clinical breast exam by your physician is recommended on an annual basis and results should be correlated with mammographic findings. Electronically signed and approved by: Delano Miner M.D.
== END | disposition home or self-care (01) ==
LOC: RADMAMWWP 07:29
PROVIDERS: ATTEND Obstetrics & Gynecology
DX: Z12.31 Encounter for screening mammogram for malignant neoplasm of breast (principal)
CPT/HCPCS: 77063; 77067

== ENCOUNTER → 2022-07-28 | Outpatient (CLI) | payer BC ==
--- NOTE | 2022-07-28 15:36 | BD ---
EXAMINATION TYPE: Axial Bone Density DATE OF EXAM: 07/28/2022 CLINICAL HISTORY: 66 years old Female. ICD-10 CODE: Z79.899 [employer] Height: 65.5" Weight: 275.3 FRAX RISK QUESTIONS: Alcohol (3 or more units per day): No Family History (Parent hip fracture): No Glucocorticoids (More than 3mos): No (Ex: prednisone, prednisolone, methylprednisolone, dexamethasone, and hydrocortisone). History of Fracture in Adulthood: No Secondary Osteoporosis: 1. Type 1 Diabetes: No 2. Hyperthyroidism: No 3. Menopause before 45: No 4. Malnutrition: No 5. Chronic liver disease: No Rheumatoid Arthritis: No Current Tobacco Use: No RISK FACTORS HISTORY OF: Hip Fracture (Right/Left): No Spine Fracture: No History of Wrist Fracture: No Surgery to Spine/Hip(right/left)/Wrist (right/left): No Family History of Osteoporosis: No Active: Yes Diet low in dairy products/other sources of calcium: No Postmenopausal woman: Yes Lost more than 2 inches in height since high school: No Frequent falls: No Poor Health: No Hyperparathyroidism: No Adrenal Insufficiency: No MEDICATIONS: Prednisone or other steroids: No Thyroid Medications: No Osteoporosis Medications: No Additional Medications: Statin for cholesterol, vitamin C, CoQ10 Additional History: Uterine Cancer, complete hysterectomy EXAM MEASUREMENTS: Bone mineral densitometry was performed using the [employer] System. Bone mineral density as measured about the Lumbar spine is: ----- L1-L4(G/cm2): 1.297 T Score Values are as follows: ----- L1: 1.2 ----- L2: 0.8 ----- L3: 0.7 ----- L4: 1.1 ----- L1-L4: 1.0 Z Score Values are as follows: ----- L1: 1.6 ----- L2: 1.2 ----- L3: 1.1 ----- L4: 1.5 ----- L1-L4: 1.4 Baseline Bone mineral density about the R hip (g/cm2): 1.252 Bone mineral density about the L hip (g/cm2): 1.373 T Score values are as follows: -----R Neck: 0.5 -----L Neck: 0.9 -----R Total: 1.9 -----L Total: 2.9 Z Score values are as follows: -----R Neck: 1.2 -----L Neck: 1.6 -----R Total: 2.3 -----L Total: 3.2 Baseline FRAX%s: The graph provided illustrates a 5.2% chance for a major osteoporotic fx and a 0.1% chance fo r the hips probability for fx in 10 years time. IMPRESSION: Normal (Values between +1 and -1 indicate normal bone mass). Consider repeating this study in 5 year s or sooner if there is some new clinical indication. NOTE: T-SCORE=SD OF THE YOUNG ADULT MEAN.
== END | disposition home or self-care (01) ==
LOC: RADBDWWP 08:11
PROVIDERS: ATTEND Family Medicine
DX: Z79.899 Other long term (current) drug therapy (principal)
CPT/HCPCS: 77080

== ENCOUNTER → 2023-04-09 | Outpatient (CLI) | payer MEDICARE ==
--- NOTE | 2023-04-10 09:34 | MM ---
Reason for Exam: Screening (asymptomatic). Last mammogram was performed 1 year(s) and 1 month(s) ago. Patient History: Menarche at age 16. First Full-Term at age 28. Left ovary removed at age 66. Right ovary removed at age 66. Hysterectomy at age 66. Postmenopausal. Patient has history of breast feeding. Risk Values: Meera 5 year model risk: 1.7%. NCI Lifetime model risk: 6.3%. Prior Study Comparison: 01/31/2019 Bilateral Screening Mammogram, [facility]. 01/28/2021 Bilateral Screening Mammogram, [facility] 02/25/2022 Bilateral MG 3D screening mammo w/cad, [facility]. Tissue Density: The breast tissue is almost entirely fat. Findings: Analyzed By CAD. Right breast asymmetry 10 cm no nipple measuring 4 mm not definitely seen on CC view. Left breast: There is no suspicious group of microcalcifications or new suspicious mass. Overall Assessment: Incomplete: need additional imaging evaluation, BI-RAD 0 Management: Diagnostic Mammogram of the right breast. Compression imaging right breast. [facility] will attempt to contact patient to return for supplemental views and ultrasound if indicated. Patient should continue monthly self-breast exams. A clinical breast exam by your physician is recommended on an annual basis. This exam should not preclude additional follow-up of suspicious palpable abnormalities. Note on Meera scores and lifetime risk: 1. A Meera score greater than 3% is considered moderate risk. If this is the case, consider specialist referral to assess eligibility for a risk reducing agent. 2. If overall lifetime risk for the development of breast cancer is 20% or higher, the patient may qualify for future screening with alternating mammogram and breast MRI. Electronically signed and approved by: Yaw Leal DO
== END | disposition home or self-care (01) ==
LOC: RADMAMWWP 09:48
PROVIDERS: ATTEND Family Medicine
DX: Z12.31 Encounter for screening mammogram for malignant neoplasm of breast (principal); Z78.0 Asymptomatic menopausal state
CPT/HCPCS: 77063; 77067

== ENCOUNTER → 2023-04-22 | Outpatient (CLI) | payer MEDICARE ==
--- NOTE | 2023-04-22 10:48 | MM ---
Reason for Exam: Additional evaluation requested from prior study. Last screening mammogram was performed less than 1 month ago. Patient History: Menarche at age 16. First Full-Term at age 28. Left ovary removed at age 66. Right ovary removed at age 66. Hysterectomy at age 66. Postmenopausal. Patient has history of breast feeding. Risk Values: Meera 5 year model risk: 1.7%. NCI Lifetime model risk: 6.3%. Tissue Density: Right: There are scattered fibroglandular densities. Findings: Analyzed By CAD. Area persists 10.8 cm the nipple measuring 5 mm on the MLO view. Possibly inferior on the ML view. Overall Assessment: Incomplete: need additional imaging evaluation, BI-RAD 0 Management: Diagnostic Breast Ultrasound of the right breast. Results were given to the patient verbally at the time of exam. Patient should continue monthly self-breast exams. A clinical breast exam by your physician is recommended on an annual basis. This exam should not preclude additional follow-up of suspicious palpable abnormalities. Note on Meera scores and lifetime risk: 1. A Meera score greater than 3% is considered moderate risk. If this is the case, consider specialist referral to assess eligibility for a risk reducing agent. 2. If overall lifetime risk for the development of breast cancer is 20% or higher, the patient may qualify for future screening with alternating mammogram and breast MRI. Electronically signed and approved by: Yaw Leal DO
--- NOTE | 2023-04-22 11:20 | USB ---
Reason for Exam: Additional evaluation requested from abnormal screening. Patient History: Menarche at age 16. First Full-Term at age 28. Left ovary removed at age 66. Right ovary removed at age 66. Hysterectomy at age 66. Postmenopausal. Patient has history of breast feeding. Risk Values: Meera 5 year model risk: 1.7%. NCI Lifetime model risk: 6.3%. Prior Study Comparison: 05/15/2016 Screening Mammogram, [facility]. 01/28/2021 Bilateral Screening Mammogram, [facility]. 02/25/2022 Bilateral MG 3D screening mammo w/cad, [facility]. 04/09/2023 Bilateral MG 3D screening mammo w/cad, [facility]. Findings: The whole breast of the right breast, the axilla of the right breast and the retroareolar of the right breast were scanned. Electronically signed and approved by: Yaw Leal DO
== END | disposition home or self-care (01) ==
LOC: RADMAMWWP 10:14
PROVIDERS: ATTEND Family Medicine
DX: R92.321 Mammographic fibroglandular density, right breast (principal); Z78.0 Asymptomatic menopausal state
CPT/HCPCS: 77065; 76641; G0279; 77061

== ENCOUNTER → 2023-05-11 | Outpatient (CLI) | payer MEDICARE ==
--- NOTE | 2023-05-11 14:39 | MR ---
EXAMINATION TYPE: MR knee RT wo con DATE OF EXAM: 05/11/2023 COMPARISON: Outside radiograph 05/08/2023 HISTORY: 67-year-old female M2 5.561, Right knee pain. TECHNIQUE: Multiplanar, multisequence imaging of the right knee is performed without IV contrast. FINDINGS: The ACL, MCL, and LCL complex are intact. There is heterogeneous increased signal at the femoral attachment of the LCL proper. LCL complex is o therwise intact. There is a small intermargin radial tear at the body of the lateral meniscus. The lateral compartment shows a focal area of moderate irregular cartilage loss along the mid weightbearing aspect of the fe moral condyle measuring 1.2 cm AP by 3 mm wide. Marginal spurring is present. Medial meniscus shows an oblique tear extending through the posterior horn and into the body. Mild to moderate irregular cartilage loss along the mid weightbearing aspect of the medial compartment. More moderate to severe irregular cartilage loss within the patellofemoral compartment especially clinton ng the lateral trochlear and lateral patellar facets. Dominant lateral marginal spurring. Chronic pre sent superiorly. Posterior loose body measuring 6 mm. There is a [id number] knee joint effusion. There is some associated lipoma arborescens along t he lateral gutter. No sizable Gerardo's cyst. Extensor mechanism is intact. Mild anterior soft tissue swelling. There is focal edema within Hoffa's fat located inferior and lateral to the patella. Normal popliteal artery anatomy. Normal muscle bulk. No suspicious bone marrow replacement. IMPRESSION: 1. Grade 1 versus grade 2 sprain femoral attachment of the LCL proper. 2. Oblique tear extending through the posterior horn and body of the medial meniscus with mild overal l medial compartmental OA. 3. Small inner margin radial tear involving the body of the lateral meniscus. There is a focal, moder ate thickness chondral defect along the mid weightbearing aspect of the femoral condyle measuring 3 m m wide and 1.2 cm AP. 4. Patellofemoral compartment OA particularly severe along the lateral patellar/trochlear facets. A 6 mm posterior loose body. 5. Suspect are reactive small to moderate joint effusion with chronic synovitis. 6. Focal edema in Hoffa's fat inferior and lateral to the patella is nonspecific but may be seen in t he setting of fat pad impingement syndrome. Clinically correlate.
== END | disposition home or self-care (01) ==
LOC: RADMRIMAIN 13:36
PROVIDERS: ATTEND Orthopaedic Surgery
DX: M17.11 Unilateral primary osteoarthritis, right knee (principal); M23.321 Other meniscus derangements, posterior horn of medial meniscus, right knee; M23.300 Other meniscus derangements, unspecified lateral meniscus, right knee; M23.41 Loose body in knee, right knee; M23.641 Other spontaneous disruption of lateral collateral ligament of right knee

== ENCOUNTER → 2023-05-19 | Outpatient (CLI) | payer MEDICARE ==
[2023-05-19 16:54] LABS: Basophils # (A) 0.09 X 10*3/uL (0.00-0.10); Eosinophils # (A) 0.24 X 10*3/uL (0.04-0.35); Eosinophils % (A) 2.7 %; HCT 42.9 % (37.2-46.3); HGB 13.8 g/dL (12.0-15.0); Lymphocytes # (A) 2.05 X 10*3/uL (0.90-5.00); Lymphocytes % (A) 23.1 %; MCH 29.3 pg (27.0-32.0); MCHC 32.2 g/dL (32.0-37.0); MCV 91.1 FL (80.0-97.0); Mean Platelet Volume 11.6 FL (9.5-12.2); Monocytes # (A) 0.43 X 10*3/uL (0.20-1.00); Monocytes % (A) 4.9 %; NRBC Per 100 WBC 0 X 10*3/uL (0.00-0.01); Neutrophils # (A) 6.01 X 10*3/uL (1.80-7.70); Neutrophils % (A) 67.8 %; Platelet Count 276 X 10*3/uL (140-440); RBC 4.71 X 10*6/uL (4.10-5.20); RDW 12.8 % (11.5-14.5); WBC 8.86 X 10*3/uL (4.50-10.00)
[2023-05-19 17:16] LABS: Anion Gap 13.7 mmol/L (4.00-12.00); Carbon Dioxide 22.3 mmol/L (21.6-31.8); Potassium 4.4 mmol/L (3.5-5.5)
== END | disposition home or self-care (01) ==
LOC: LABPAT 09:41
PROVIDERS: ATTEND Orthopaedic Surgery
DX: Z01.818 Encounter for other preprocedural examination (principal); M23.91 Unspecified internal derangement of right knee
CPT/HCPCS: 80051; 85025; 93005

== ENCOUNTER 2023-06-04 11:26 | Day surgery (SDC) | payer MEDICARE ==
[2023-05-29 11:12] VITALS: BMI 43.8
--- NOTE | 2023-06-03 14:01 | HP ---
HISTORY AND PHYSICAL DATE OF SURGERY: 06/04/2023. HISTORY OF PRESENT ILLNESS: Ann Rhodes is a 67-year-old patient seen with progressive right knee pain. We discussed options regarding treatment. She elected to proceed with right knee arthroscopy. Consent was obtained. PAST MEDICAL HISTORY: Noncontributory. SURGICAL HISTORY: Hysterectomy. DAILY MEDICATIONS: Motrin. ALLERGIES: Amoxicillin and shellfish. SOCIAL HISTORY: She denies tobacco use. PHYSICAL EVALUATION OF THE RIGHT KNEE: Range of motion is 0 to 130 degrees. Mild effusion. Tenderness, medial joint line. Tenderness, lateral joint line. Positive medial Jacqueline's. Positive lateral Jacqueline's. Ligaments stable. Hip rotation without pain. Distal neurovascular exam intact. IMAGING STUDIES: Right knee radiographs revealed mild medial and moderate patellofemoral compartment osteoarthritis. MRI of right knee revealed medial meniscal tear, lateral meniscal tear, patellofemoral compartment osteoarthritis, synovitis, and loose body. IMPRESSION: 1. Internal derangement of right knee with medial and lateral meniscal tears. 2. Right knee patellofemoral compartment osteoarthritis. 3. Right knee synovitis and loose body. 4. Hyperlipidemia. PLAN: Right knee arthroscopy with partial medial/lateral meniscectomy, arthroscopic synovectomy, and removal of loose body. MMODL / IJN: [id number] /
[~2023-06-04 11:26] MED LIST changes: -DEXAMETHASONE SOD PHOSPHATE 4 MG/ML 1 ML VIAL IV ONE; -HYDROmorphone 0.5 MG/0.5 ML SYRINGE IVP PRN; +LIDOCAINE 1% (10MG/ML) FOR IV START INTRADERMA PRN; +MIDAZOLAM 2 MG/2 ML VIAL IV PRN; -ONDANSETRON 4 MG/2 ML VIAL IVP ONE; -Pre Op ABX Message 1 EACH MISC MISCELLANE ONE
[2023-06-04] MEDS: LACTATED RINGERS 1,000 ML IV SCH (12:26)
[2023-06-04] MEDS: DEXAMETHASONE SOD PHOSPHATE 4 MG/ML 1 ML VIAL IV ONE (12:35)
[2023-06-04] MEDS: ONDANSETRON 4 MG/2 ML VIAL IVP ONE (12:40)
[2023-06-04] MEDS ORDERED: SUCCINYLCHOLINE CHLORIDE 200 MG/10 ML VIAL IV ONE (13:08)
[2023-06-04] MEDS ORDERED: LIDOCAINE 1% INJ 10MG/ML (20 ML MDV) ONE (13:08)
[2023-06-04] MEDS ORDERED: MIDAZOLAM 2 MG/2 ML VIAL ONE (13:08)
[2023-06-04] MEDS ORDERED: fentaNYL (PF) 50 MCG/ML 2 ML AMP ONE (13:08)
[2023-06-04] MEDS ORDERED: DEXAMETHASONE SOD PHOSPHATE 10 MG/ML 1 ML VIAL ONE (13:08)
[2023-06-04] MEDS ORDERED: PROPOFOL 10 MG/ML 20 ML VIAL IV ONE (13:08)
[2023-06-04] MEDS: ceFAZolin 3 GM in SODIUM CHLORIDE 0.9% 100 ML IVPB PRN (13:14)
[2023-06-04] MEDS: BUPIVACAINE (PF) 0.25% 30 ML VIAL INTRAARTIC ONE (13:14)
[2023-06-04] MEDS: HYDROmorphone 0.5 MG/0.5 ML SYRINGE IVP PRN (14:05)
[2023-06-04] MEDS: KETOROLAC 15 MG/ML 1 ML VIAL IVP ONE (14:06)
[2023-06-04] MEDS: droPERidol 5 MG/2 ML VIAL IVP ONE (14:07)
--- NOTE | 2023-06-04 14:07 | P.OP ---
Date of Procedure: 06/04/23 Preoperative Diagnosis: Internal derangement right knee Postoperative Diagnosis: 1. Tear medial and lateral meniscus right knee 2. Grade IV chondromalacia femoral sulcus right knee 3. Reactive synovitis medial, lateral and suprapatellar compartments right knee 4. Grade II/III chondromalacia medial femoral condyle right knee Procedure(s) Performed: 1. Arthroscopic partial medial and lateral meniscectomy right knee 2. Arthroscopic microfracture femoral sulcus right knee 3. Arthroscopic partial synovectomy medial, lateral and suprapatellar compartments right knee 4. Arthroscopic chondroplasty medial femoral condyle right knee Anesthesia: EULALIO, local Surgeon: Grant Finley Estimated Blood Loss (ml): 10 Pathology: none sent Condition: stable Disposition: PACU Indications for Procedure: 67-year-old patient seen with progressive right knee pain. After treatment options were discussed, she elected to proceed with arthroscopy. Operative Findings: See description of procedure Description of Procedure: Patient was taken to the operative suite. Patient underwent a general anesthetic by the department of anesthesia. Patient was given preoperative antibiotics. The right lower extremity was placed in a well-padded arthroscopic leg alvarado. The right leg was prepped and draped in the normal sterile orthopedic fashion. A lateral parapatellar and suprapatellar incision was made. Trochars were inserted. Arthroscopy was initiated. Suprapatellar pouch revealed diffuse thick reactive synovitis. The patellofemoral joint appeared to articular congruently. There was grade IV chondromalacia of the patella with some areas of exposed bone. There was grade IV chondromalacia of the medial femoral sulcus with an area of exposed bone measuring 2 x 3 cm.. The scope was guided into the medial gutter. No loose bodies or plica were identified. The scope was then guided into the medial compartment. A medial parapatellar incision was made. Trocar inserted followed by probe. There was a complex tear posterior horn medial meniscus. There were areas of grade 2/3 chondromalacia medial femoral condyle with some osteochondral flap tears. There was thick reactive synovitis anteriorly. I performed a partial medial meniscectomy getting down to stable meniscal tissue. I performed a chondroplasty of the medial femoral condyle getting down to a stable osteochondral tissue. I performed a partial synovectomy decompressing the reactive synovitis. The residual meniscus was stable. The residual osteochondral surface appears stable. There was good decompression of the synovitis. Scope and probe were then guided into the intercondylar notch. Cruciates were identified, probed and found to be stable. The scope and probe were then guided into lateral compartment. There was a radial tear mid body lateral meniscus. There was an area of grade II chondromalacia lateral femoral condyle without tears. There was some thick reactive situs anteriorly. I performed a partial lateral meniscectomy getting down to stable meniscal tissue. I performed a partial synovectomy decompressing the reactive synovitis. The residual meniscus was stable. There was good decompression of the synovitis. The scope was in guided back into the suprapatellar compartment. I introduced a motorized shaver into the suprasellar compartment. I debrided some piecemeal fragments of meniscus that I encountered. I performed a partial synovectomy. There was good decompression of the synovitis. I introduced a microfracture awl and I performed a microfracture to the area of exposed bone along the femoral sulcus i n 2 separate areas, penetrating the bone with resultant bleeding at the microfracture sites. The area was probed and was found to be stable. I took 1 more look around the entire knee, no residual debris. Instruments were now removed from the joint. The joint was infiltrated with .25% Marcaine. Steri- Strips were applied to the portal sites. Sterile dressings were applied. The patient was placed into a LINDSAY hose. No tourniquet was utilized. The patient was awakened, transferred to a bed and taken to recovery stable satisfactory condition.
[2023-06-04 14:36] VITALS: PULSE 66; RESP 16; TEMP 97
[2023-06-04 15:07] VITALS: BP 128/78
== END 2023-06-04 15:20 | disposition home or self-care (01) ==
LOC: OR 11:26
PROVIDERS: ATTEND Orthopaedic Surgery
DX: S83.281A Other tear of lateral meniscus, current injury, right knee, initial encounter (principal); E78.5 Hyperlipidemia, unspecified; M17.11 Unilateral primary osteoarthritis, right knee; M65.161 Other infective (teno)synovitis, right knee; Z88.0 Allergy status to penicillin; Z79.899 Other long term (current) drug therapy; X58.XXXA Exposure to other specified factors, initial encounter
CPT/HCPCS: 29879; 29880; J2250; J0330; J1100 ×2; J0690; J2405; J2001; J3010; J1885; J2704; J1170; J1790; J0665

== ENCOUNTER → 2023-10-23 | Outpatient (CLI) | payer MEDICARE ==
--- NOTE | 2023-10-23 08:59 | MM ---
Reason for Exam: Follow-up at short interval from prior study. Last screening mammogram was performed 6 month(s) ago. Patient History: Menarche at age 16. First Full-Term at age 28. Left ovary removed at age 66. Right ovary removed at age 66. Hysterectomy at age 66. Postmenopausal. Patient has history of breast feeding. Risk Values: Meera 5 year model risk: 1.7%. NCI Lifetime model risk: 6.1%. Prior Study Comparison: 02/25/2022 Bilateral MG 3D screening mammo w/cad, [facility]. 04/09/2023 Bilateral MG 3D screening mammo w/cad, [facility]. 04/22/2023 Right MG 3D work up w/cad RT, [facility]. Tissue Density: Right: There are scattered areas of fibroglandular density. Findings: Analyzed By CAD. 4 mm nodular density central upper right MLO view remains unchanged for 6 months. No clear correlate on the CC view. We note that there was no previous ultrasound correlate. Ongoing short interval follow-up recommended. Overall Assessment: Probably benign, BI-RAD 3 Management: Diagnostic Mammogram of both breasts in 6 months. Total one-year follow-up right breast and annual exam of the left breast. Results were given to the patient verbally at the time of exam. Patient should continue monthly self-breast exams. A clinical breast exam by your physician is recommended on an annual basis. This exam should not preclude additional follow-up of suspicious palpable abnormalities. Note on Meera scores and lifetime risk: 1. A Meera score greater than 3% is considered moderate risk. If this is the case, consider specialist referral to assess eligibility for a risk reducing agent. 2. If overall lifetime risk for the development of breast cancer is 20% or higher, the patient may qualify for future screening with alternating mammogram and breast MRI. Electronically signed and approved by: Sampson Charlton M.D. Radiologist
== END | disposition home or self-care (01) ==
LOC: RADMAMWWP 08:35
PROVIDERS: ATTEND Family Medicine
DX: R92.321 Mammographic fibroglandular density, right breast (principal); R92.8 Other abnormal and inconclusive findings on diagnostic imaging of breast; Z78.0 Asymptomatic menopausal state
CPT/HCPCS: 77065; G0279; 77061

== ENCOUNTER → 2024-04-28 | Outpatient (CLI) | payer MEDICARE ==
--- NOTE | 2024-04-28 07:41 | MM ---
Reason for Exam: Follow-up at short interval from prior study. Last mammogram was performed 1 year(s) and 1 month(s) ago. Patient History: Menarche at age 16. First Full-Term at age 28. Left ovary removed at age 66. Right ovary removed at age 66. Hysterectomy at age 66. Postmenopausal. Patient has history of breast feeding. Risk Values: Meera 5 year model risk: 1.7%. NCI Lifetime model risk: 6.1%. Prior Study Comparison: 02/25/2022 Bilateral MG 3D screening mammo w/cad, [facility]. 04/09/2023 Bilateral MG 3D screening mammo w/cad, [facility]. 04/22/2023 Right US breast workup RT, [facility]. 04/22/2023 Right MG 3D work up w/cad RT, [facility]. 10/23/2023 Right MG 3D diag mammo w/cad RT, [facility]. Tissue Density: There are scattered areas of fibroglandular density. Findings: Analyzed By CAD. The pattern is symmetrical. No significant interval change is evident. Benign punctate calcifications are scattered bilaterally No suspicious groups of microcalcifications, spiculated or lobular masses, architectural distortion or other secondary signs of malignancy are mammographically apparent. Overall Assessment: Benign, BI-RAD 2 Management: Screening Mammogram of both breasts in 1 year. A negative mammogram report should not preclude additional follow up of suspicious palpable abnormalities. Patient should continue monthly self breast exam. A clinical breast exam by your physician is recommended on an annual basis and results should be correlated with mammographic findings. Note on Meera scores and lifetime risk: 1. A Meera score greater than 3% is considered moderate risk. If this is the case, consider specialist referral to assess eligibility for a risk reducing agent. 2. If overall lifetime risk for the development of breast cancer is 20% or higher, the patient may qualify for future screening with alternating mammogram and breast MRI. [facility], , 04/28/2024 7:36 AM. Electronically signed and approved by: Omar Grijalva D.O. Radiologis
== END | disposition home or self-care (01) ==
LOC: RADMAMWWP 06:52
PROVIDERS: ATTEND Family Medicine
DX: R92.8 Other abnormal and inconclusive findings on diagnostic imaging of breast (principal); Z90.722 Acquired absence of ovaries, bilateral; Z78.0 Asymptomatic menopausal state; R92.323 Mammographic fibroglandular density, bilateral breasts
CPT/HCPCS: 77066; G0279; 77062

== ENCOUNTER → 2024-08-16 | Outpatient (CLI) | payer MEDICARE ==
--- NOTE | 2024-08-16 13:08 | MR ---
EXAMINATION TYPE: MR shoulder LT wo con DATE OF EXAM: 08/16/2024 10:51 AM COMPARISON: None. CLINICAL INDICATION: Female, 68 years old with history of M25.512 PAIN IN LEFT SHOULDER, Lt shoulder pain for months IV Contrast: cc (None if empty) TECHNIQUE: Multiplanar, multisequence imaging of the left shoulder is performed without contrast. FINDINGS: There is no bone contusion or fracture. There is moderate arthritis AC joint. There is a small glenoh umeral joint effusion. There is a downsloping acromion. No significant shoulder. There is intrasubstance tear of the infraspinatus tendon without retraction. There is a rim rent tear supraspinatus. The subscapularis tendon is intact. There is moderate subacromial and subdeltoid bursitis. The biceps tendon is normal in signal intensity and position within the bicipital groove. There is a SLAP injury of the superior cartilaginous labrum. IMPRESSION: 1. Rotator cuff tears of the supraspinatus and infraspinatus without retraction. 2. SLAP injury of the superior cartilaginous labrum. 3. Moderate subacromial and subdeltoid bursitis. 4. Moderate arthritis of the AC joint without significant shoulder impingement. [facility], , 08/16/2024 1:06 PM
== END | disposition home or self-care (01) ==
LOC: RADMRIMAIN 09:51
PROVIDERS: ATTEND Orthopaedic Surgery
DX: M19.012 Primary osteoarthritis, left shoulder (principal); M75.52 Bursitis of left shoulder; M75.112 Incomplete rotator cuff tear or rupture of left shoulder, not specified as traumatic